=== PATIENT | female | born 1950 | race Caucasian/White ===

== ENCOUNTER 2018-01-02 20:13 | Inpatient (IN) | payer BC, OTHER, MEDICAID ==
[~2018-01-02] VITALS: Ht 157.5 cm; Wt 100.0 kg
[2018-01-02 20:46] LABS: BASOPHIL % 0.5 % (0-2)
[2018-01-02 20:51] LABS: RED CELL DISTRIBUTION WIDTH 19.9 % (11.5-14.5)
[2018-01-02 20:53] LABS: PLATELET COUNT 513 x10^3mcL (130-400)
[2018-01-02 20:54] LABS: CALCIUM 8.8 mg/dL (8.5-10.1); CARBON DIOXIDE 31.8 mmol/L (21-32); CHLORIDE SERUM 101 mmol/L (98-107); CREATININE SERUM 0.7 mg/dL (0.6-1.0); GFR1 > 60 mL/min; GLUCOSE SERUM 90 mg/dL (74-106); POTASSIUM SERUM 3.8 mmol/L (3.5-5.1); SODIUM SERUM 140 mmol/L (136-145)
[2018-01-02 20:59] LABS: ALKALINE PHOSPHATASE 132 U/L (46-116); ALT/SGPT 27 U/L (14-59); AST/SGOT 21 U/L (15-37); BILIRUBIN TOTAL 0.24 mg/dL (0.20-1.00); CHOLESTEROL 138 mg/dL (<200); HDL CHOLESTEROL 55 mg/dL (40-60); PHOSPHOROUS 3.1 mg/dL (2.5-4.9); TOTAL PROTEIN, SERUM 6.7 g/dL (6.4-8.2); URIC ACID 3.5 mg/dL (2.6-6.0)
[2018-01-02 21:15] LABS: ALBUMIN 3.1 g/dL (3.4-5.0)
[2018-01-03 11:31] LABS: MAGNESIUM 2.2 mg/dL (1.8-2.4); PHOSPHOROUS 3.2 mg/dL (2.5-4.9)
[2018-01-03 11:42] LABS: T3 TOTAL 0.46 ng/mL
[2018-01-03 11:43] LABS: FREE T4 0.28 ng/dL (0.76-1.46)
[2018-01-03 12:11] VITALS: BP 147/69
[2018-01-03 12:55] LABS: FREE THYROXINE INDEX 0.3 ug/dL (1.4-4.5)
[2018-01-03 16:32] VITALS: BP 95/51
[2018-01-03] MEDS ORDERED: GOOD SENSE ASPI81 M3 (18:46)
[2018-01-03 20:49] VITALS: BP 128/56
[2018-01-04 05:25] VITALS: BP 121/83
[2018-01-04 06:34] LABS: BASOPHIL % 0.2 % (0-2)
[2018-01-04 06:53] LABS: CALCIUM 8.3 mg/dL (8.5-10.1); CARBON DIOXIDE 37.1 mmol/L (21-32); CHLORIDE SERUM 99 mmol/L (98-107); CREATININE SERUM 0.6 mg/dL (0.6-1.0); GFR1 > 60 mL/min; GLUCOSE SERUM 83 mg/dL (74-106); POTASSIUM SERUM 3.6 mmol/L (3.5-5.1); SODIUM SERUM 137 mmol/L (136-145)
[2018-01-04 06:55] LABS: PLATELET COUNT 499 x10^3mcL (130-400); RED CELL DISTRIBUTION WIDTH 19.2 % (11.5-14.5)
[2018-01-04 07:43] VITALS: BP 119/61
[2018-01-04 12:10] VITALS: BP 120/64
[2018-01-04 16:08] VITALS: BP 134/60
[2018-01-04 16:26] LABS: UA SPECIFIC GRAVITY >=1.030 (1.005-1.035); microscopic required? YES; urine erythrocyte TRACE (NEGATIVE)
[2018-01-04 16:35] LABS: AMPHETAMINE QUAL UR NONE DETECTED (See below)
[2018-01-04 21:24] VITALS: BP 119/58
[2018-01-05 05:23] VITALS: BP 105/54
[2018-01-05 08:30] VITALS: BP 102/48
[2018-01-05 17:30] VITALS: Ht 157.5 cm; Wt 100.0 kg
[2018-01-05 17:31] VITALS: BP 108/48; BP 81/47
[2018-01-05 21:45] VITALS: BP 109/46
[2018-01-06 04:56] VITALS: BP 116/56
[2018-01-06 09:05] VITALS: BP 102/52
[2018-01-06 16:42] VITALS: BP 119/57
[2018-01-06 20:39] VITALS: BP 134/51
[2018-01-07 05:00] VITALS: BP 134/55
[2018-01-07 09:31] VITALS: BP 123/55
[2018-01-07] MEDS ORDERED: TYL325 PO (16:32)
[2018-01-07] MEDS ORDERED: SYN25 PO (16:32)
== END 2018-01-07 17:15 | DRG 552 ==
LOC: ED 20:13 → MU 01-03 10:01
PROVIDERS: Emergency Medicine; Internal Medicine
DX: M47.9 Spondylosis, unspecified (principal); J96.10 Chronic respiratory failure, unspecified whether with hypoxia or hypercapnia; J44.9 Chronic obstructive pulmonary disease, unspecified; E03.9 Hypothyroidism, unspecified; D64.9 Anemia, unspecified; F17.210 Nicotine dependence, cigarettes, uncomplicated; W18.30XA Fall on same level, unspecified, initial encounter; R29.6 Repeated falls; S41.111A Laceration without foreign body of right upper arm, initial encounter; Z66 Do not resuscitate; E66.9 Obesity, unspecified; Z59.0 Homelessness; Z91.81 History of falling; Z99.81 Dependence on supplemental oxygen; Y93.89 Activity, other specified; Y92.89 Other specified places as the place of occurrence of the external cause; Y99.8 Other external cause status; Z98.51 Tubal ligation status; Z79.82 Long term (current) use of aspirin
CPT/HCPCS: 83880; 84439; 97110-GP; 97530-GP; G0480; J1644; Q0092